=== PATIENT | male | born 1990 | race Caucasian/White ===

== ENCOUNTER 2023-09-16 05:08 | Emergency (ER) | payer SELFPAY ==
--- NOTE | 2023-09-16 05:20 | ED Physician Documentation ---
History of Present Illness - Stated complaint Stated Complaint: OD/CHEST PX - History obtained from History obtained from: Patient - Additonal information Additional information: 33yM with pmh alcohol and cocaine abuse, occasional cigarette smoker, p/w substernal chest pain starting just prior to arrival after doing cocaine and drinking a lot of alcohol overnight. denies n/v soa, back pain. no FH ND in first degree relative. does not have dm, htn, or hld that he knows of. PD ED PE NORMAL - Vitals Vital signs reviewed: Yes - General General: Alert and oriented X 3, Well developed/nourished, Other (anxious, diaphoretic) - HEENT HEENT: Atraumatic, PERRL, EOMI, Moist mucous membranes, Pharynx benign - Neck Neck: Supple, no meningeal sign - Cardiac Cardiac: RRR - Respiratory Respiratory: No respiratory distress, Clear bilaterally - Derm Derm: Normal color, Warm and dry - Extremities Extremities: No deformity Results - EKG (time done) 0517 EKG releavant findings:: EKG personally interpreted by author of this note. Relevant findings are: Rate: Rate (enter#) (91) Rhythm: NSR [place]: Normal Intervals: Normal GA, Wide QRS (127) QRS: Poor R wave progression Ischemia: Q waves (I, II, III, aVL) PD Medical Decision Making - ED course ED course: 33yM p/w cocaine induced chest pain and sensation of "I think I'm going to ". cbc, abdominal panel, trop, etoh level, mudds panel, ekg, cxr ordered. patient acutely anxious therefore 1mg iv ativan was administered. 325 asa given as well for heart protection. plan to endorse to incoming daytime ED MD at 7am shift change pending repeat trop and sobriety.
[2023-09-16 05:22] LABS: BASOPHILS # (AUTO) 0.1 10^3/uL (0.0-0.1); BASOPHILS % (AUTO) 1.1 %; EOSINOPHILS # (AUTO) 0.3 10^3/uL (0.0-0.7); HCT - HEMATOCRIT 46.5 % (42.0-52.0); LYMPHOCYTES % (AUTO) 33.1 %; MEAN CORPUSCULAR HEMOGLOBIN 30.5 pg (27.0-31.0); MEAN CORPUSCULAR HGB CONC 34.4 g/dL (32.0-36.0); MEAN CORPUSCULAR VOLUME 88.6 fL (80.0-94.0); MEAN PLATELET VOLUME 12.5 fL (7.4-11.4); MONOCYTES # (AUTO) 0.9 10^3/uL (0.0-1.0); MONOCYTES % (AUTO) 10.5 %; NEUTROPHILS # (AUTO) 4.6 10^3/uL (1.5-6.6); NEUTROPHILS % (AUTO) 51.9 %; PLT - PLATELET COUNT 265 10^3/uL (130-450); RED BLOOD COUNT 5.25 10^6/uL (4.70-6.10); RED CELL DISTRIBUTION WIDTH 12.8 % (12.0-15.0); WHITE BLOOD COUNT 8.9 x10^3/uL (4.8-10.8)
[2023-09-16 05:35] LABS: ALBUMIN 4.8 g/dL (3.2-5.5); ALBUMIN/GLOBULIN RATIO 1.7 (1.0-2.2); ALKALINE PHOSPHATASE 58 IU/L (42-121); ALT ALANINE AMINOTRANSFERASE 30 IU/L (10-60); AST ASPARTATE AMINOTRANSFERASE 25 IU/L (10-42); BILIRUBIN,TOTAL 0.4 mg/dL (0.2-1.0); BUN - BLOOD UREA NITROGEN 10 mg/dL (6-20); CALCIUM 9.5 mg/dL (8.5-10.3); CARBON DIOXIDE - CO2 26 mmol/L (21-32); CHLORIDE 99 mmol/L (101-111); CREATININE 1.1 mg/dL (0.6-1.3); GFR - MDRD 78 (>89); GLUCOSE 103 mg/dL (74-104); LIPASE 13 U/L (11-82); POTASSIUM 3.4 mmol/L (3.5-4.5); SODIUM 133 mmol/L (135-145); TOTAL PROTEIN 7.7 g/dL (6.4-8.9)
[2023-09-16] MEDS: SODIUM CHLORIDE 0.9% 1,000 ML IV STA (05:37)
[2023-09-16] MEDS: ASPIRIN CHEW 81 MG TABLET PO STA (05:39)
[2023-09-16] MEDS: LORazepam 2 MG/ML VIAL IVP STA (05:39)
[2023-09-16 05:42] LABS: TROPONIN I HIGH SENSITIVITY < 2.3 ng/L (2.3-19.7)
[2023-09-16] MEDS: POTASSIUM CHLOR 10 MEQ/100 ML 10 MEQ/100 ML BAG IV STA (06:43)
[2023-09-16] MEDS: SODIUM CHLORIDE 0.9% 500 ML IV STA (07:15)
[2023-09-16 07:40] LABS: AMPHETAMINE SCREEN,URINE NEGATIVE (NEGATIVE); BENZODIAZEPINES SCREEN, URINE NEGATIVE (NEGATIVE); COCAINE SCREEN URINE POSITIVE (NEGATIVE); METHAMPHETAMINES SCREEN, URINE NEGATIVE (NEGATIVE); OPIATE SCREEN, URINE NEGATIVE (NEGATIVE); THC CANNABINOID SCREEN, URINE POSITIVE (NEGATIVE); TRICYCLIC ANTIDEPRESSANT,URINE NEGATIVE (NEGATIVE)
[2023-09-16 07:41] LABS: BARBITURATE SCREEN,UR NEGATIVE (NEGATIVE); BUPRENORPHINE SCREEN, URINE NEGATIVE (NEGATIVE); METHADONE SCREEN, URINE NEGATIVE (NEGATIVE); OXYCODONE SCREEN, URINE NEGATIVE (NEGATIVE)
--- NOTE | 2023-09-16 08:08 | ED Physician Documentation ---
ED Addendum - Addendum Addendum: 09/16/23 Patient care assumed at shift change from Dr. Caban. Patient presented with chest pain after using cocaine and alcohol. Initial workup by Dr. Caban without any significant findings. K 3.4 and IV replacement was ordered by Dr. Caban. Patient is not tolerating IV replacement as he is screaming out stating that it is burning. Will DC IV replacement and order p.o.Repeat troponin is pending. Anticipate discharge if repeat troponin is unchanged. On reevaluation, patient is resting comfortably. Says he is feeling better. Discussed whether he would be open to speaking to social work regarding his substance abuse and he does not want or feel he needs help at this time. States that it was a stupid decision and he does not plan on using cocaine again. Repeat troponin is also negative. Does not have any known risk factors for ACS. Patient is awake, conversant, ambulating on his own. He will call a friend for a ride home and understands concerning symptoms to return for. Departure - Departure Disposition: 01 Home, Self Care Clinical Impression: Chest pain, Polysubstance abuse Condition: Stable Instructions: Addiction Drug Abuse Tx, ED Chest Pain Atypical Unkn Cause Comments: You were seen in the emergency department for cocaine and alcohol use. Your tests uncovered no emergent issues. Please follow-up with your primary care provider and return to the emergency department if you have any new or worsening symptoms or other concerns. [facility] [address] [place] [address] Main [facility] offers a monitored and safe setting for individuals withdrawing from alcohol and drugs, and counseling for individuals experiencing a mental health crisis. All services are provided in a 10-bed facility where intensive medical monitoring is required along with stabilization services. The goal of these services is to assess a clients mental health and substance use disorder related needs, and assist them in accessing the services they need to recover. Forms: PCP List Discharge Date/Time: 09/16/23 09:18
--- NOTE | 2023-09-16 08:13 | XRAY Report ---
PROCEDURE: Chest 1V INDICATIONS: Chest Pain TECHNIQUE: One view of the chest was acquired. COMPARISON: None. FINDINGS: Surgical changes and devices: None. Lungs and pleura: No pleural effusions or pneumothorax. Lungs are clear. Mediastinum: Mediastinal contours appear normal. Heart size is normal. Bones and chest wall: No suspicious bony lesions. Overlying soft tissues appear unremarkable. IMPRESSION: No acute cardiopulmonary process. Findings are concordant with preliminary interpretation provided by [facility]. Reviewed by: Sherif Nicole MD on 09/16/2023 8:12 AM PDT Approved by: Sherif Nicole MD on 09/16/2023 8:12 AM PDT Station ID: [id number]
[2023-09-16] MEDS: POTASSIUM BICARB 25 MEQ TABLET PO ONE (08:14)
[2023-09-16 09:13] VITALS: BP 121/91; O2SAT 98
== END 2023-09-16 09:18 | disposition home or self-care (01) ==
LOC: ED 05:08
DX: R07.9 Chest pain, unspecified (principal); E87.6 Hypokalemia; F19.10 Other psychoactive substance abuse, uncomplicated; F10.10 Alcohol abuse, uncomplicated; Y90.3 Blood alcohol level of 60-79 mg/100 ml
CPT/HCPCS: 36415; 71045; 80053; 80306; 82077; 83690; 84484; 85025; 93005; 96365; 96375; 99284; A9270; J2060